=== PATIENT | female | born 1945 | race Caucasian/White ===

== ENCOUNTER 2023-12-19 19:18 | Emergency (ER) | payer MEDICARE, BC ==
[~2023-12-19] VITALS: Ht 154.9 cm; Wt 54.0 kg
[2023-12-19] MEDS: IV NORMAL SALINE 1000 ML BAG IV ONE (20:00)
[2023-12-19] MEDS: ONDANSETRON 4 MG/2 ML VIAL IV ONE (20:05)
[2023-12-19 20:07] LABS: BASOPHILS # (AUTO) 0.1 K/UL (0.0-0.2); BASOPHILS % (AUTO) 0.6 % (0.0-2.0); EOSINOPHILS # (AUTO) 0.1 K/uL (0.0-0.7); EOSINOPHILS % (AUTO) 0.5 % (0.0-7.0); HEMATOCRIT 37.7 % (31.2-41.9); LYMPHOCYTES # (AUTO) 0.7 K/uL (0.8-4.8); LYMPHOCYTES % (AUTO) 6.2 % (20.5-51.5); MEAN CORPUSCULAR HEMOGLOBIN 29.4 uug (24.7-32.8); MEAN CORPUSCULAR HGB CONC 34 g/dL (32.3-35.6); MEAN CORPUSCULAR VOLUME 85.5 fL (75.5-95.3); MONOCYTES # (AUTO) 0.1 K/uL (0.1-1.30); MONOCYTES % (AUTO) 1.4 % (0.0-11.0); NEUTROPHILS # (AUTO) 9.8 K/uL (1.8-8.9); NEUTROPHILS % (AUTO) 91.3 % (38.5-71.5); PLATELET COUNT (AUTO) 327 K/uL (179-408); RED BLOOD CELL COUNT(AUTO) 4.42 MIL/uL (3.63-4.92); RED CELL DISTRIBUTION WIDTH 14.2 % (12.3-17.7); WHITE BLOOD COUNT (AUTO) 10.7 K/uL (3.8-11.8)
[2023-12-19] MEDS ORDERED: ONDANSETRON 4 MG/2 ML VIAL ONE (20:08)
[2023-12-19 20:18] LABS: DIFFERENTIAL COMMENT 1
[2023-12-19 20:20] LABS: CALCIUM 9.2 mg/dL (8.5-10.1); CARBON DIOXIDE 25 mmol/L (21-32); CHLORIDE 103 mmol/L (98-107); CREATININE 1.1 mg/dL (0.6-1.3); GLUCOSE 104 mg/dL (74-106); POTASSIUM 3.8 mmol/L (3.5-5.1); SODIUM SERUM 139 mmol/L (136-145); UREA NITROGEN, BLOOD 28 mg/dL (7-18)
[2023-12-19 20:25] LABS: ALANINE AMINOTRANSFERASE 21 U/L (14-59); ALBUMIN 3.5 g/dL (3.4-5.0); ALKALINE PHOSPHATASE 58 U/L (50-136); ASPARTATE AMINOTRANSFERASE 14 U/L (15-37); BILIRUBIN,DIRECT 0.1 mg/dL (0.0-0.2); BILIRUBIN,TOTAL 0.7 mg/dL (0.2-1.0); LIPASE 34 U/L (16-77); TOTAL PROTEIN, SERUM 7.6 g/dL (6.4-8.2)
[2023-12-19] MEDS ORDERED: PROCHLORPERAZINE EDISYLATE 10 MG/2 ML VIAL IV ONE (20:30)
[2023-12-19] MEDS: FAMOTIDINE. 20 MG/2 ML VIAL IV ONE (20:35)
[2023-12-19] MEDS ORDERED: FAMOTIDINE. 20 MG/2 ML VIAL IV ONE (20:40)
[2023-12-19] MEDS ORDERED: MORPHINE SULFATE 2 MG/1 ML DISP.SYRIN ONE (20:41)
[2023-12-19] MEDS: KETOROLAC TROMETHAMINE 15 MG INJ IVP ONE (21:30)
[2023-12-19] MEDS: PROCHLORPERAZINE EDISYLATE 10 MG/2 ML VIAL IV ONE (21:30)
[2023-12-19] MEDS: MORPHINE SULFATE 2 MG/1 ML DISP.SYRIN IV ONE (21:32)
[2023-12-19] MEDS ORDERED: PROCHLORPERAZINE EDISYLATE 10 MG/2 ML VIAL ONE (21:37)
[2023-12-19] MEDS ORDERED: KETOROLAC TROMETHAMINE 30 MG INJ ONE (21:38)
[2023-12-19 22:01] LABS: *BILIRUBIN,URIN NEGATIVE (NEGATIVE); *BLOOD, URINE 2+ (NEGATIVE); *COLOR,URINE YELLOW (YELLOW); *KETONES,URINE 1+ (NEGATIVE); *PROTEIN,URINE 2+ (NEGATIVE); *UROBILINOGEN,URINE 0.2 E.U./dl (NORMAL); LEUKOCYTE ESTERASE ,URINE 3+ (NEGATIVE); NITRITE, URINE POSITIVE (NEGATIVE); UGLUCOSE NEGATIVE (NEGATIVE)
[2023-12-19 22:41] LABS: *CLARITY,URINE HAZY (CLEAR)
[2023-12-19] MEDS ORDERED: PROC-11 PO (22:48)
[2023-12-19] MEDS ORDERED: LEVO750T46 PO (22:48)
[2023-12-19] MEDS ORDERED: HYDR-4209 PO (22:48)
[2023-12-19] MEDS ORDERED: CEFTRIAXONE /D5W 50ML IVPB **ER PYXIS IV ONE (22:55)
[2023-12-19] MEDS ORDERED: ONDA4TAB11 PO (22:56)
[2023-12-19] MEDS: CEFTRIAXONE 1 G in IV DEXTROSE 5% 50 ML IV ONE (22:57)
[2023-12-19 23:04] LABS: WBC,URINE 50-80 /HPF (0-3)
[2023-12-19 23:07] LABS: BACTERIA,URINE MANY /HPF (NONE SEEN); SQUAMOUS EPITHELIAL CELL,UR FEW /HPF (NONE SEEN)
[2023-12-20 01:44] VITALS: BP 125/68; TEMP 99; O2SAT 99
[2023-12-25] MEDS ORDERED: NITR100C PO (09:01)
== END 2023-12-20 01:46 | disposition home or self-care (01) ==
LOC: ER 19:26
DX: N10 Acute pyelonephritis (principal); M54.9 Dorsalgia, unspecified; R10.9 Unspecified abdominal pain; R11.0 Nausea; Z79.899 Other long term (current) drug therapy; Z88.1 Allergy status to other antibiotic agents
CPT/HCPCS: 99285; 74176; 96365; 96375; 96361; 80076; 80048; 81001; 83690; 85025; 87040; 87186; 87077; 84484; 36415; 93005; 83605; 87086; J0696; J2405; J2270; J7040; A4606; A4663; J0780; J1885; J3490

== ENCOUNTER 2024-03-06 09:31 | Inpatient (IN) | payer MEDICARE, BC ==
[~2024-03-06] VITALS: Ht 160 cm; Wt 63.5 kg
[~2024-03-06 09:31] MED LIST: HYDR-4209 PO; LEVO750T46 PO; NITR100C PO; ONDA4TAB11 PO; PROC-11 PO
[2024-03-06] MEDS ORDERED: HYDROMORPHONE 1 MG/1 ML DISP.SYRIN ONE (10:12)
[2024-03-06] MEDS ORDERED: ONDANSETRON 4 MG/2 ML VIAL ONE (10:12)
[2024-03-06 10:14] LABS: BASOPHILS # (AUTO) 0.1 K/UL (0.0-0.2); BASOPHILS % (AUTO) 0.9 % (0.0-2.0); EOSINOPHILS % (AUTO) 0.4 % (0.0-7.0); HEMATOCRIT 38.1 % (31.2-41.9); HEMOGLOBIN 12.3 g/dL (10.9-14.3); LYMPHOCYTES # (AUTO) 1.7 K/uL (0.8-4.8); MEAN CORPUSCULAR HEMOGLOBIN 27.6 uug (24.7-32.8); MEAN CORPUSCULAR HGB CONC 32 g/dL (32.3-35.6); MEAN CORPUSCULAR VOLUME 85.6 fL (75.5-95.3); MONOCYTES # (AUTO) 0.7 K/uL (0.1-1.30); MONOCYTES % (AUTO) 7.5 % (0.0-11.0); NEUTROPHILS # (AUTO) 7.3 K/uL (1.8-8.9); NEUTROPHILS % (AUTO) 74.2 % (38.5-71.5); PLATELET COUNT (AUTO) 348 K/uL (179-408); RED BLOOD CELL COUNT(AUTO) 4.45 MIL/uL (3.63-4.92); RED CELL DISTRIBUTION WIDTH 14.5 % (12.3-17.7); WHITE BLOOD COUNT (AUTO) 9.8 K/uL (3.8-11.8)
[2024-03-06 10:15] LABS: DIFFERENTIAL COMMENT 1
[2024-03-06 10:24] LABS: CALCIUM 9.3 mg/dL (8.5-10.1); CARBON DIOXIDE 25 mmol/L (21-32); CHLORIDE 106 mmol/L (98-107); CREATININE 1.1 mg/dL (0.6-1.3); GLUCOSE 119 mg/dL (74-106); POTASSIUM 3.8 mmol/L (3.5-5.1); SODIUM SERUM 141 mmol/L (136-145); UREA NITROGEN, BLOOD 17 mg/dL (7-18)
[2024-03-06 10:33] LABS: ALANINE AMINOTRANSFERASE 19 U/L (14-59); ALBUMIN 3.4 g/dL (3.4-5.0); ALKALINE PHOSPHATASE 61 U/L (50-136); ASPARTATE AMINOTRANSFERASE 9 U/L (15-37); BILIRUBIN,DIRECT 0.2 mg/dL (0.0-0.2); BILIRUBIN,TOTAL 0.6 mg/dL (0.2-1.0); LIPASE 36 U/L (16-77); TOTAL PROTEIN, SERUM 7.3 g/dL (6.4-8.2)
[2024-03-06] MEDS: ONDANSETRON 4 MG/2 ML VIAL IV ONE (10:37)
[2024-03-06] MEDS: HYDROMORPHONE 1 MG/1 ML DISP.SYRIN IV ONE (10:37)
[2024-03-06] MEDS: IV NORMAL SALINE 1000 ML BAG IV ONE (10:37)
[2024-03-06] MEDS ORDERED: IV NORMAL SALINE 250 ML IV ONE (10:49)
[2024-03-06] MEDS ORDERED: IOHEXOL 300MG/ML 100 ML INFUS..BTL ONE (10:49)
[2024-03-06] MEDS ORDERED: SWABABLE VALVE TRANSFER SET EA MC ONE (10:49)
[2024-03-06] MEDS ORDERED: diphenhydrAMINE 50 MG/1 ML VIAL ONE (11:19)
[2024-03-06] MEDS ORDERED: PROCHLORPERAZINE EDISYLATE 10 MG/2 ML VIAL ONE (11:19)
[2024-03-06] MEDS ORDERED: ROSU5TAB PO (11:21)
[2024-03-06] MEDS: diphenhydrAMINE 50 MG/1 ML VIAL IV ONE (11:21)
[2024-03-06] MEDS ORDERED: GABA-532 PO (11:21)
[2024-03-06] MEDS ORDERED: NITR100C11 PO (11:21)
[2024-03-06] MEDS: PROCHLORPERAZINE EDISYLATE 10 MG/2 ML VIAL IV ONE (11:22)
[2024-03-06] MEDS ORDERED: PROP40TA7 PO (11:24)
[2024-03-06 12:08] LABS: *BILIRUBIN,URIN NEGATIVE (NEGATIVE); *BLOOD, URINE 1+ (NEGATIVE); *CLARITY,URINE CLEAR (CLEAR); *COLOR,URINE Other (YELLOW); *KETONES,URINE NEGATIVE (NEGATIVE); *PROTEIN,URINE NEGATIVE (NEGATIVE); *UROBILINOGEN,URINE 0.2 E.U./dl (NORMAL); LEUKOCYTE ESTERASE ,URINE NEGATIVE (NEGATIVE); NITRITE, URINE NEGATIVE (NEGATIVE); UGLUCOSE NEGATIVE (NEGATIVE)
[2024-03-06 12:32] LABS: BACTERIA,URINE RARE /HPF (NONE SEEN); RBC,URINE 0-3 /HPF (0-3); SQUAMOUS EPITHELIAL CELL,UR FEW /HPF (NONE SEEN); WBC,URINE 0-3 /HPF (0-3)
[2024-03-06] MEDS ORDERED: MEROPENEM 1GM/NS 100ML IVPB **ER PYXIS ONLY IV ONE (13:43)
[2024-03-06] MEDS: MEROPENEM 1,000 MG in IV NORMAL SALINE 100 ML IV ONE (13:43)
[2024-03-06] MEDS ORDERED: HYDROCODONE/APAP 5-325MG TABLET PO PRN (15:15)
[2024-03-06 15:30] VITALS: BP 134/60; TEMP 98; O2SAT 99
[2024-03-06] MEDS: IV NS 1000 ML 1,000 ML IV PRN (16:57)
[2024-03-06] MEDS ORDERED: ACETAMINOPHEN 325 MG TABLET PO PRN (17:00)
[2024-03-06] MEDS ORDERED: ONDANSETRON 4 MG/2 ML VIAL IV PRN (17:00)
[2024-03-06] MEDS: ENOXAPARIN SODIUM 40 MG/0.4 ML DISP.SYRIN SQ SCH (17:00)
[2024-03-06] MEDS ORDERED: MAGNESIUM HYDROXIDE 30 ML LIQUID UDC PO PRN (17:00)
[2024-03-06 20:00] VITALS: BP 115/57; TEMP 98.1; O2SAT 97
[2024-03-06] MEDS: MEROPENEM 500 MG in IV NORMAL SALINE 50 ML IV SCH (21:07)
[2024-03-06] MEDS ORDERED: MEROPENEM 500 MG in IV NORMAL SALINE 50 ML IV SCH (22:00)
[2024-03-07 05:47] VITALS: BP 118/54; TEMP 98; O2SAT 97
[2024-03-07 06:59] LABS: BASOPHILS # (AUTO) 0.1 K/UL (0.0-0.2); BASOPHILS % (AUTO) 1.3 % (0.0-2.0); EOSINOPHILS # (AUTO) 0.2 K/uL (0.0-0.7); EOSINOPHILS % (AUTO) 2.8 % (0.0-7.0); HEMOGLOBIN 11.4 g/dL (10.9-14.3); LYMPHOCYTES # (AUTO) 2.1 K/uL (0.8-4.8); LYMPHOCYTES % (AUTO) 30.1 % (20.5-51.5); MEAN CORPUSCULAR HEMOGLOBIN 28.2 uug (24.7-32.8); MEAN CORPUSCULAR HGB CONC 33 g/dL (32.3-35.6); MEAN CORPUSCULAR VOLUME 86.5 fL (75.5-95.3); MONOCYTES # (AUTO) 0.6 K/uL (0.1-1.30); MONOCYTES % (AUTO) 8.8 % (0.0-11.0); PLATELET COUNT (AUTO) 301 K/uL (179-408); RED BLOOD CELL COUNT(AUTO) 4.05 MIL/uL (3.63-4.92); RED CELL DISTRIBUTION WIDTH 14.5 % (12.3-17.7); WHITE BLOOD COUNT (AUTO) 7.1 K/uL (3.8-11.8)
[2024-03-07 07:14] LABS: DIFFERENTIAL COMMENT 1
[2024-03-07 07:17] LABS: CALCIUM 8.5 mg/dL (8.5-10.1); CARBON DIOXIDE 26 mmol/L (21-32); CHLORIDE 108 mmol/L (98-107); GLUCOSE 91 mg/dL (74-106); MAGNESIUM 1.9 mg/dL (1.8-2.4); PHOSPHOROUS 3.5 mg/dL (2.5-4.9); POTASSIUM 3.8 mmol/L (3.5-5.1); SODIUM SERUM 142 mmol/L (136-145); UREA NITROGEN, BLOOD 14 mg/dL (7-18)
[2024-03-07] MEDS: GABAPENTIN 100 MG CAPSULE PO SCH ×2 (11:00→20:22)
[2024-03-07] MEDS ORDERED: PROPRANOLOL HCL 40 MG TABLET PO SCH (11:00)
[2024-03-07 11:41] VITALS: BP 136/64; TEMP 97.9; O2SAT 96
[2024-03-07] MEDS: PROPRANOLOL HCL 20 MG TABLET PO SCH (13:03)
[2024-03-07 16:00] VITALS: BP 109/51; TEMP 97.8; O2SAT 98
[2024-03-07 19:00] VITALS: BP 94/46; TEMP 97.6; O2SAT 96
[2024-03-07] MEDS ORDERED: ATORVASTATIN 20 MG TABLET PO SCH (21:00)
[2024-03-08 06:02] VITALS: BP 120/61; TEMP 97.4; O2SAT 96
[2024-03-08 11:41] VITALS: BP 144/67; TEMP 97.6; O2SAT 98
[2024-03-08] MEDS ORDERED: MERO500P IV (12:28)
[2024-03-08] MEDS ORDERED: GABA-532 PO (12:28)
[2024-03-08 14:54] VITALS: BP 136/65; TEMP 97.2; O2SAT 99
== END 2024-03-08 21:00 | disposition home health service (06) | DRG 690 ==
LOC: ER 09:33 → MEDSURG3 14:28
PROVIDERS: ADMIT Nurse Practitioner Acute Care; ATTEND Nurse Practitioner Acute Care
PROC: 05HC33Z Insertion of Infusion Device into Left Basilic Vein, Percutaneous Approach (ICD-10-PCS; principal; 2024-03-08)
DX: N13.6 Pyonephrosis (principal); K29.70 Gastritis, unspecified, without bleeding; B96.89 Other specified bacterial agents as the cause of diseases classified elsewhere; I10 Essential (primary) hypertension; E78.5 Hyperlipidemia, unspecified; Z87.440 Personal history of urinary (tract) infections; Z88.8 Allergy status to other drugs, medicaments and biological substances
CPT/HCPCS: 36415; 71045; 83605; 83690; 83735; 84100; 84484; 85025; 87040; 93005; A4606; A4663; G0378; J0780; J1170; J1200; J1650; J2185; J2405; J7040; Q9967